=== PATIENT | female | born 1970 | race Caucasian/White ===

== ENCOUNTER 2024-05-24 20:14 | Emergency (ER) | payer BC, SELFPAY ==
[2024-05-24] MEDS ORDERED: Glucagon 1 MG/ML KIT ONE (20:42)
[2024-05-24] MEDS ORDERED: Midazolam HCl 2 mg/2 ml Vial ONE (20:42)
[2024-05-24] MEDS ORDERED: fentaNYL 50 mcg/mL 1 mL Vial ONE (21:59)
[2024-05-24] MEDS ORDERED: PROPOFOL 20 ML ONE (21:59)
[2024-05-24] MEDS ORDERED: Ondansetron PF 4 MG/2 ML Vial ONE (22:01)
[2024-05-24] MEDS ORDERED: SUCCINYLCHOLINE/SOD CL,ISO/PF 200 MG/10 ML SYRINGE FS ONE (22:01)
[2024-05-24] MEDS ORDERED: Dexamethasone 4 mg/ml Vial ONE (22:01)
[2024-05-24] MEDS ORDERED: Lidocaine 1% PF 5 ML VIAL ONE ×2 (22:01)
[2024-05-24] MEDS ORDERED: diphenhydrAMINE 50 MG/ML VIAL ONE (22:01)
== END 2024-05-24 22:24 | disposition admitted as inpatient to this hospital (09) ==
LOC: CSHERS 20:14
DX: T18.128A Food in esophagus causing other injury, initial encounter (principal); W44.F3XA Food entering into or through a natural orifice, initial encounter
CPT/HCPCS: 96374; J1100; J1200; J1611; J2250; J2405; J2704; J3010